=== PATIENT | female | born 1980 | race Two or more races ===

== ENCOUNTER 2024-03-08 08:32 | Emergency (ER) | payer MEDICAID ==
[~2024-03-08] VITALS: Ht 154.9 cm; Wt 54.8 kg
[2024-03-08 08:54] VITALS: BP 123/92; TEMP 97.9
[2024-03-08 09:15] VITALS: PULSE 86; RESP 16; O2SAT 99
[2024-03-08] MEDS: cefTRIAXone SOD 500 MG VL IM ONE (09:45)
[2024-03-08] MEDS: KETOROLAC TROMETH 30 MG/ML 1ML VIAL IM ONE (09:46)
[2024-03-08] MEDS: DexAMETHasone SOD PHOS 10MG/1ML VIAL INJ IM ONE (09:46)
[2024-03-08] MEDS ORDERED: AMOX500T3 PO (10:00)
== END 2024-03-08 10:06 | disposition home or self-care (01) ==
LOC: ER 08:32
DX: K04.7 Periapical abscess without sinus (principal); K05.10 Chronic gingivitis, plaque induced; Z88.2 Allergy status to sulfonamides; Z91.09 Other allergy status, other than to drugs and biological substances
CPT/HCPCS: 96372; 99284; J0696; J1100; J1885